=== PATIENT | male | born 1965 | race Caucasian/White ===

== ENCOUNTER 2017-01-26 15:21 | Inpatient (IN) | payer OTHER ==
[~2017-01-26 15:21] MED LIST: HYCET 7.5 MG-3473 M2 PO; NO HOME MEDS
[2017-01-26 16:18] LABS: ALB/GLOB RATIO 0.9 (0.8-2.0); ALBUMIN 2.7 g/dl (3.5-5.0); ALKALINE PHOSPHATASE 67 U/L (33-138); ALT/SGPT 22 U/L (12-78); ANION GAP 13 mmol/L (0-20); AST/SGOT 22 U/L (10-40); BLOOD UREA NITROGEN 16 mg/dl (6-24); CALCIUM 7.9 mg/dl (8.5-10.5); CARBON DIOXIDE-VENOUS 25 mmol/L (22-32); CHLORIDE 98 mmol/l (96-110); CREATININE 0.74 mg/dl (0.60-1.30); GLUCOSE 144 mg/dL (70-110); POTASSIUM 3.7 mmol/L (3.7-5.1); SODIUM 132 mmol/L (135-145); eGFR VALUE FOR BLACK >90 mL/Min
[2017-01-26] MEDS ORDERED: LOVENOX100 MG/1 M SC (16:20)
[2017-01-26 20:42] LABS: INR 1.4 INR (0.9-1.1); PROTHROMBIN TIME 16.4 SECONDS (9.0-13.6)
[2017-01-26 20:56] LABS: PARTIAL THROMBOPLASTIN TIME 67 SECONDS (22-36)
[2017-01-26 21:32] LABS: PROCALCITONIN 10.52 ng/ml (0.05-0.09)
[2017-01-26 22:30] LABS: URINE BILIRUBIN NEGATIVE (NEG); URINE BLOOD MODERATE (NEG); URINE GLUCOSE (UA) NEGATIVE (NEG); URINE KETONE SMALL (NEG); URINE LEUKOCYTE ESTERASE NEGATIVE (NEG); URINE NITRITE NEGATIVE (NEG); URINE PROTEIN MODERATE (NEG); URINE SPECIFIC GRAVITY 1.015 (1.003-1.030)
[2017-01-26 22:34] LABS: URINE APPEARANCE CLOUDY; URINE COLOR YELLOW
[2017-01-26 22:42] LABS: URINE EPITHELIAL CELLS RARE /[HPF] (0-10); URINE RBC RARE /[HPF] (0-5); URINE WBC 0 /[HPF] (0-5)
[2017-01-27 02:30] LABS: ABG CO2 ARTERIAL 21 mmol/L (21-27); ARTERIAL BLD GAS O2 SATURATION 99 % (95-98); ARTERIAL BLOOD GAS PCO2 41 mmHg (32-45); ARTERIAL PO2 166 mmHg (70-100); BICARBONATE 20 mmol/L (21-28); BLOOD GAS BASE EXCESS -6 mM/L (-/+3)
--- NOTE | 2017-01-27 02:52 | NUR ---
AMDISSION ASSESSMENT AND VTE LATE DUE TO WORK FLOW.
[2017-01-27 04:15] LABS: ABG CO2 ARTERIAL 21 mmol/L (21-27); ARTERIAL BLD GAS O2 SATURATION 100 % (95-98); ARTERIAL BLOOD GAS PCO2 21 mmHg (32-45); ARTERIAL PO2 144 mmHg (70-100); BICARBONATE 21 mmol/L (21-28); BLOOD GAS BASE EXCESS -1 mM/L (-/+3)
[2017-01-27 04:17] LABS: PH 7.61 Units (7.35-7.45)
[2017-01-27 04:38] LABS: MCV (MEAN CELL VOLUME) 79.7 fl (82.0-96.0); RED BLOOD COUNT 2.22 mil/cmm (4.40-5.70); RED CELL DISTRIBUTION WIDTH 18.4 % (12.4-16.4)
[2017-01-27 04:40] LABS: MCH (MEAN CORPUSCULAR HGB) 26.1 pg (28.0-32.0); MCHC MEAN CORPUSCULAR HGB CONC 32.8 % (32.0-36.0)
[2017-01-27 04:43] LABS: HGB-HEMOGLOBIN 5.8 gm/dl (13.5-17.0); WHITE BLOOD COUNT 0.1 tho/cmm (4.0-10.0)
[2017-01-27 04:44] LABS: HCT-HEMATOCRIT 17.7 % (36.0-53.5); PLATELET COUNT 13 tho/cmm (150-450)
[2017-01-27 04:48] LABS: ANION GAP 13 mmol/L (0-20); BLOOD UREA NITROGEN 12 mg/dl (6-24); CARBON DIOXIDE-VENOUS 21 mmol/L (22-32); CHLORIDE 106 mmol/l (96-110); CREATININE 0.68 mg/dl (0.60-1.30); GLUCOSE 123 mg/dL (70-110); POTASSIUM 3.4 mmol/L (3.7-5.1); SODIUM 137 mmol/L (135-145); eGFR VALUE FOR BLACK >90 mL/Min
[2017-01-27 05:49] LABS: ABG CO2 ARTERIAL 21 mmol/L (21-27); ARTERIAL BLD GAS O2 SATURATION 99 % (95-98); BICARBONATE 21 mmol/L (21-28); BLOOD GAS BASE EXCESS -2 mM/L (-/+3); PH 7.47 Units (7.35-7.45)
[2017-01-27 05:50] LABS: ARTERIAL BLOOD GAS PCO2 29 mmHg (32-45); ARTERIAL PO2 103 mmHg (70-100)
--- NOTE | 2017-01-27 07:26 | NUR ---
01/27/17 PATIENT CALLED TO USE BATHROOM. HEART RATE HAD BEEN IN 130S TO 140S FOR PAST FEW HOURS, IMS AWARE AND IV BOLUS IN PROGRESS. UPON ENTERING ROOM PATIENT BREATHING LABORED, 02 SATS >90% ON ROOM AIR. PATIENT STARTED TRYING TO SPEAK AND O2 SATS QUICKLY DROPPED IN THE 60S, THAN 40S, THAN 20S. STARTED TO BAG PATIENT, COREMAKING MACHINE OPERATOR CALLED. PATIENT CONTINUED TO HAVE PULSE, BUT WAS MINIMALLY RESPONSIVE. SATS QUICKLY INCREASED TO GRATER THAN 90% WITH BAGGING AND PATIENT REGAINED RESPONSIVENESS. IMS, RT, CCU CHARGE AT BEDSIDE. ORDERS TO TRANSFER TO CCU RECIEVED. PRIOR TO TRANSFER IV SOLUMEDROL GIVEN AND ABGS DRAWN. ATTEMPTED TO CALL EMERGENCY CONTACT BROTHER NAREN, HAD TO LEAVE VOICEMAIL TO CALL HOSPITAL. GEORGE CANO RECIEVING NURSE IS AWARE FAMILY NOT YET NOTIFIED OF TRANSFER.
[2017-01-27 22:11] LABS: LYMPH ABSOLUTE COUNT 0.1 tho/cmm (0.8-4.5); MCV (MEAN CELL VOLUME) 80.4 fl (82.0-96.0); MONOCYTE ABSOLUTE COUNT 0.1 tho/cmm (0.0-1.2); RED BLOOD COUNT 2.96 mil/cmm (4.40-5.70); RED CELL DISTRIBUTION WIDTH 17.4 % (12.4-16.4)
[2017-01-27 22:15] LABS: HCT-HEMATOCRIT 23.8 % (36.0-53.5); MCHC MEAN CORPUSCULAR HGB CONC 33.6 % (32.0-36.0)
[2017-01-27 22:18] LABS: WHITE BLOOD COUNT 0.5 tho/cmm (4.0-10.0)
[2017-01-27 22:20] LABS: PLATELET COUNT 25 tho/cmm (150-450)
[2017-01-27 22:21] LABS: NEUTROPHIL ABSOLUTE COUNT 0.4 tho/cmm (1.6-8.0)
[2017-01-28 05:12] LABS: HGB-HEMOGLOBIN 7.8 gm/dl (13.5-17.0); MCH (MEAN CORPUSCULAR HGB) 26.9 pg (28.0-32.0); MCV (MEAN CELL VOLUME) 80.3 fl (82.0-96.0); RED CELL DISTRIBUTION WIDTH 17.5 % (12.4-16.4)
[2017-01-28 05:18] LABS: HCT-HEMATOCRIT 23.3 % (36.0-53.5); IMMATURE GRANULOCYTES ABSOLUTE 0.07 tho/cmm (0-0.03); IMMATURE GRANULOCYTES PERCENT 8.9 % (0-0.3); LYMPH % 11.4 % (20-45); LYMPH ABSOLUTE COUNT 0.1 tho/cmm (0.8-4.5); MCHC MEAN CORPUSCULAR HGB CONC 33.5 % (32.0-36.0); MONO % 26.6 % (0-12); MONOCYTE ABSOLUTE COUNT 0.2 tho/cmm (0.0-1.2); NEUTROPHILS % 53.1 % (40-80)
[2017-01-28 05:19] LABS: NEUTROPHIL-AUTOMATED 0.4 tho/cmm (1.6-8.0); PLATELET COUNT 28 tho/cmm (150-450); WHITE BLOOD COUNT 0.8 tho/cmm (4.0-10.0)
[2017-01-28 05:20] LABS: NEUTROPHIL ABSOLUTE COUNT 0.4 tho/cmm (1.6-8.0)
[2017-01-28 15:24] LABS: ANION GAP 13 mmol/L (0-20); BLOOD UREA NITROGEN 22 mg/dl (6-24); CALCIUM 7.7 mg/dl (8.5-10.5); CARBON DIOXIDE-VENOUS 24 mmol/L (22-32); CHLORIDE 109 mmol/l (96-110); CREATININE 0.67 mg/dl (0.60-1.30); GLUCOSE 134 mg/dL (70-110); POTASSIUM 3.3 mmol/L (3.7-5.1); SODIUM 143 mmol/L (135-145); eGFR VALUE FOR BLACK >90 mL/Min
[2017-01-29 05:19] LABS: HCT-HEMATOCRIT 25.3 % (36.0-53.5); HGB-HEMOGLOBIN 8.5 gm/dl (13.5-17.0); MCH (MEAN CORPUSCULAR HGB) 27.1 pg (28.0-32.0); MCHC MEAN CORPUSCULAR HGB CONC 33.6 % (32.0-36.0); MCV (MEAN CELL VOLUME) 80.6 fl (82.0-96.0); NEUTROPHIL-AUTOMATED 3.9 tho/cmm (1.6-8.0); RED BLOOD COUNT 3.14 mil/cmm (4.40-5.70)
[2017-01-29 05:28] LABS: BASO % 0.2 % (0-2); IMMATURE GRANULOCYTES ABSOLUTE 0.31 tho/cmm (0-0.03); IMMATURE GRANULOCYTES PERCENT 6.9 % (0-0.3); LYMPH % 2.7 % (20-45); LYMPH ABSOLUTE COUNT 0.1 tho/cmm (0.8-4.5); MONO % 2.7 % (0-12); MONOCYTE ABSOLUTE COUNT 0.1 tho/cmm (0.0-1.2); NEUTROPHIL ABSOLUTE COUNT 3.9 tho/cmm (1.6-8.0); NEUTROPHILS % 87.5 % (40-80); WHITE BLOOD COUNT 4.5 tho/cmm (4.0-10.0)
[2017-01-29 05:31] LABS: PLATELET COUNT 39 tho/cmm (150-450)
[2017-01-29 05:44] LABS: ANION GAP 11 mmol/L (0-20); BLOOD UREA NITROGEN 19 mg/dl (6-24); CALCIUM 7.7 mg/dl (8.5-10.5); CARBON DIOXIDE-VENOUS 23 mmol/L (22-32); CHLORIDE 111 mmol/l (96-110); CREATININE 0.53 mg/dl (0.60-1.30); GLUCOSE 120 mg/dL (70-110); SODIUM 141 mmol/L (135-145); eGFR VALUE FOR BLACK >90 mL/Min
[2017-01-29 07:22] LABS: WBC MORPHOLOGY DOHLE BODIES
[2017-01-30 05:54] LABS: HCT-HEMATOCRIT 25.7 % (36.0-53.5); HGB-HEMOGLOBIN 8.4 gm/dl (13.5-17.0); MCH (MEAN CORPUSCULAR HGB) 26.9 pg (28.0-32.0); MCHC MEAN CORPUSCULAR HGB CONC 32.7 % (32.0-36.0); MCV (MEAN CELL VOLUME) 82.4 fl (82.0-96.0); NEUTROPHIL-AUTOMATED 7.7 tho/cmm (1.6-8.0); PLATELET COUNT 56 tho/cmm (150-450); RED BLOOD COUNT 3.12 mil/cmm (4.40-5.70); RED CELL DISTRIBUTION WIDTH 18.8 % (12.4-16.4)
[2017-01-30 06:01] LABS: WHITE BLOOD COUNT 9.2 tho/cmm (4.0-10.0)
[2017-01-30 06:08] LABS: ANION GAP 12 mmol/L (0-20); BLOOD UREA NITROGEN 11 mg/dl (6-24); CALCIUM 7.6 mg/dl (8.5-10.5); CARBON DIOXIDE-VENOUS 27 mmol/L (22-32); CHLORIDE 108 mmol/l (96-110); GLUCOSE 86 mg/dL (70-110); SODIUM 144 mmol/L (135-145); eGFR VALUE FOR BLACK >90 mL/Min
[2017-01-30 06:36] LABS: POTASSIUM 3.1 mmol/L (3.7-5.1)
[2017-01-30 09:38] LABS: BAND % 33 % (0-20)
[2017-01-31 04:34] LABS: HCT-HEMATOCRIT 26.9 % (36.0-53.5); HGB-HEMOGLOBIN 8.7 gm/dl (13.5-17.0); MCH (MEAN CORPUSCULAR HGB) 26.8 pg (28.0-32.0); MCHC MEAN CORPUSCULAR HGB CONC 32.3 % (32.0-36.0); MCV (MEAN CELL VOLUME) 82.8 fl (82.0-96.0); MEAN PLATELET VOLUME 10.7 cmc (9.4-12.4); NEUTROPHIL-AUTOMATED 10.2 tho/cmm (1.6-8.0); PLATELET COUNT 75 tho/cmm (150-450); RED BLOOD COUNT 3.25 mil/cmm (4.40-5.70); RED CELL DISTRIBUTION WIDTH 19.2 % (12.4-16.4); WHITE BLOOD COUNT 12.6 tho/cmm (4.0-10.0)
[2017-01-31 04:47] LABS: ANION GAP 11 mmol/L (0-20); BLOOD UREA NITROGEN 9 mg/dl (6-24); CALCIUM 7.7 mg/dl (8.5-10.5); CARBON DIOXIDE-VENOUS 26 mmol/L (22-32); CHLORIDE 109 mmol/l (96-110); CREATININE 0.46 mg/dl (0.60-1.30); GLUCOSE 96 mg/dL (70-110); POTASSIUM 3.3 mmol/L (3.7-5.1); SODIUM 143 mmol/L (135-145); eGFR VALUE FOR BLACK >90 mL/Min
[2017-01-31 05:53] LABS: BAND % 2 % (0-20); BAND ABSOLUTE COUNT 0.3 tho/cmm (0-2.0)
[2017-02-01 04:44] LABS: BASO % 0.1 % (0-2); HCT-HEMATOCRIT 27.2 % (36.0-53.5); HGB-HEMOGLOBIN 8.7 gm/dl (13.5-17.0); IMMATURE GRANULOCYTES ABSOLUTE 1.47 tho/cmm (0-0.03); IMMATURE GRANULOCYTES PERCENT 9.9 % (0-0.3); LYMPH % 3.1 % (20-45); LYMPH ABSOLUTE COUNT 0.5 tho/cmm (0.8-4.5); MCH (MEAN CORPUSCULAR HGB) 26.8 pg (28.0-32.0); MCV (MEAN CELL VOLUME) 83.7 fl (82.0-96.0); MEAN PLATELET VOLUME 10.4 cmc (9.4-12.4); MONO % 8.5 % (0-12); MONOCYTE ABSOLUTE COUNT 1.3 tho/cmm (0.0-1.2); NEUTROPHIL ABSOLUTE COUNT 11.6 tho/cmm (1.6-8.0); NEUTROPHIL-AUTOMATED 11.6 tho/cmm (1.6-8.0); NEUTROPHILS % 78.4 % (40-80); PLATELET COUNT 117 tho/cmm (150-450); RED BLOOD COUNT 3.25 mil/cmm (4.40-5.70); RED CELL DISTRIBUTION WIDTH 19.7 % (12.4-16.4); WHITE BLOOD COUNT 14.9 tho/cmm (4.0-10.0)
[2017-02-01] MEDS ORDERED: POTASSIUM CHLO20 ME4 PO (12:14)
[2017-02-01] MEDS ORDERED: PREDNISONE10 M1 PO (12:15)
== END 2017-02-01 14:45 | disposition home health service (06) | DRG 314 ==
LOC: EDMED 15:21 → EMR2 18:47 → PCUA 20:55 → CCU 01-27 02:20 → 5WE 01-28 19:29
PROVIDERS: Emergency Medicine; Family Medicine; Internal Medicine Medical Oncology; Registered Nurse; ADMIT Hospitalist
PROC: 30243N1 Transfusion of Nonautologous Red Blood Cells into Central Vein, Percutaneous Approach (ICD-10-PCS; principal; 2017-01-27)
PROC: 5A09357 Assistance with Respiratory Ventilation, Less than 24 Consecutive Hours, Continuous Positive Airway Pressure (ICD-10-PCS; 2017-01-27)
DX: T80.211A Bloodstream infection due to central venous catheter, initial encounter (principal); A41.01 Sepsis due to Methicillin susceptible Staphylococcus aureus; I26.90 Septic pulmonary embolism without acute cor pulmonale; J96.01 Acute respiratory failure with hypoxia; D61.810 Antineoplastic chemotherapy induced pancytopenia; J18.9 Pneumonia, unspecified organism; D70.9 Neutropenia, unspecified; T82.9XXA Unspecified complication of cardiac and vascular prosthetic device, implant and graft, initial encounter; R65.20 Severe sepsis without septic shock; E44.1 Mild protein-calorie malnutrition; T82.868A Thrombosis due to vascular prosthetic devices, implants and grafts, initial encounter; K92.1 Melena; T17.990A Other foreign object in respiratory tract, part unspecified in causing asphyxiation, initial encounter; R50.81 Fever presenting with conditions classified elsewhere; C11.9 Malignant neoplasm of nasopharynx, unspecified; E87.6 Hypokalemia; Z68.24 Body mass index [BMI] 24.0-24.9, adult; Z79.01 Long term (current) use of anticoagulants; Z91.19 Patient's noncompliance with other medical treatment and regimen; R19.7 Diarrhea, unspecified
CPT/HCPCS: J0131; J0692; J1447; J1650; J1940; J1956; J2920; J2930; J3370; J3480; J7030; P9016; P9031; P9033; Q9967

== ENCOUNTER 2017-03-20 09:55 | Inpatient (IN) | payer OTHER ==
[~2017-03-20 09:55] MED LIST changes: +LOVENOX100 MG/1 M SC; +POTASSIUM CHLO20 ME4 PO; +PREDNISONE10 M1 PO
[2017-03-20 11:02] LABS: BASO % 0.7 % (0-2); BASO ABSOLUTE COUNT 0.1 tho/cmm (0.0-0.2); EOS % 0.2 % (0-7); HCT-HEMATOCRIT 27.9 % (36.0-53.5); HGB-HEMOGLOBIN 8.8 gm/dl (13.5-17.0); IMMATURE GRANULOCYTES PERCENT 3.7 % (0-0.3); LYMPH % 1.5 % (20-45); LYMPH ABSOLUTE COUNT 0.3 tho/cmm (0.8-4.5); MCHC MEAN CORPUSCULAR HGB CONC 31.5 % (32.0-36.0); MCV (MEAN CELL VOLUME) 88.9 fl (82.0-96.0); MEAN PLATELET VOLUME 8.5 cmc (9.4-12.4); MONO % 0.6 % (0-12); MONOCYTE ABSOLUTE COUNT 0.1 tho/cmm (0.0-1.2); NEUTROPHIL ABSOLUTE COUNT 15.2 tho/cmm (1.6-8.0); NEUTROPHIL-AUTOMATED 15.2 tho/cmm (1.6-8.0); NEUTROPHILS % 93.3 % (40-80); RED BLOOD COUNT 3.14 mil/cmm (4.40-5.70); RED CELL DISTRIBUTION WIDTH 19.1 % (12.4-16.4); WHITE BLOOD COUNT 16.3 tho/cmm (4.0-10.0)
[2017-03-20 11:22] LABS: ALB/GLOB RATIO 0.8 (0.8-2.0); ALBUMIN 3.1 g/dl (3.5-5.0); ALKALINE PHOSPHATASE 145 U/L (33-138); ALT/SGPT 25 U/L (12-78); ANION GAP 13 mmol/L (0-20); AST/SGOT 17 U/L (10-40); BILIRUBIN,TOTAL 0.6 mg/dl (0.0-1.5); BLOOD UREA NITROGEN 19 mg/dl (6-24); C-REACTIVE PROTEIN 2.1 mg/dl (0-0.9); CALCIUM 9.4 mg/dl (8.5-10.5); CARBON DIOXIDE-VENOUS 23 mmol/L (22-32); CHLORIDE 108 mmol/l (96-110); GLUCOSE 146 mg/dL (70-110); POTASSIUM 4.1 mmol/L (3.7-5.1); SODIUM 140 mmol/L (135-145); eGFR VALUE FOR BLACK >90 mL/Min
[2017-03-20 11:41] LABS: ESR-ERYTHROCYTE SED RATE 59 mm/hr (0-20)
[2017-03-20 11:57] LABS: PLATELET COUNT 340 tho/cmm (150-450)
[2017-03-20] MEDS ORDERED: DOXORUBICIN2 MG/1 ML IV (12:28)
[2017-03-20] MEDS ORDERED: CYCLOPHOSPHAMI500 MG IV (12:31)
[2017-03-20] MEDS ORDERED: VINCRISTINE IV (12:34)
[2017-03-20] MEDS ORDERED: SODIUM CHLORIDE 0.9% IV (12:40)
[2017-03-20] MEDS ORDERED: POTASSIUM20 MEQ/13 IV (12:42)
[2017-03-20] MEDS ORDERED: MAGNESIUM4 MEQ/1 M1 IV (12:45)
[2017-03-20] MEDS ORDERED: NEULASTA6 MG/0.61 IV (12:52)
[2017-03-20] MEDS ORDERED: ALOXI0.25 MG/5 IV (12:53)
[2017-03-20] MEDS ORDERED: DEXAMETHAS10 MG/1 M1 IV (12:54)
[2017-03-20] MEDS ORDERED: EMEND150 MG IV (12:55)
[2017-03-20] MEDS ORDERED: [UNRECOGNIZED DRUG - OTHER] SC (12:58)
[2017-03-20] MEDS ORDERED: BENADRYL25 M3 IV (12:59)
[2017-03-20] MEDS ORDERED: SOLU-CORTE100 MG/24 IV (13:01)
[2017-03-20] MEDS ORDERED: SOLU-MEDRO125 MG/23 IV (13:02)
[2017-03-20] MEDS ORDERED: [UNRECOGNIZED DRUG - OTHER] IV (14:50)
[2017-03-20] MEDS ORDERED: NAFCILLIN SODIUM IV (15:23)
[2017-03-20 16:12] LABS: PROCALCITONIN 0.36 ng/ml (0.05-0.09)
[2017-03-20 16:50] LABS: URINE BILIRUBIN NEGATIVE (NEG); URINE BLOOD SMALL (NEG); URINE GLUCOSE (UA) NEGATIVE (NEG); URINE KETONE NEGATIVE (NEG); URINE LEUKOCYTE ESTERASE NEGATIVE (NEG); URINE NITRITE NEGATIVE (NEG); URINE PROTEIN NEGATIVE (NEG); URINE SPECIFIC GRAVITY 1.015 (1.003-1.030)
[2017-03-20 16:52] LABS: URINE APPEARANCE CLOUDY; URINE COLOR YELLOW
[2017-03-20 16:56] LABS: URINE AMORPHOUS 2+; URINE EPITHELIAL CELLS RARE /[HPF] (0-10); URINE RBC RARE /[HPF] (0-5); URINE WBC RARE /[HPF] (0-5)
[2017-03-21 04:58] LABS: BASO % 1.8 % (0-2); BASO ABSOLUTE COUNT 0.2 tho/cmm (0.0-0.2); EOS % 0.3 % (0-7); HCT-HEMATOCRIT 27.8 % (36.0-53.5); HGB-HEMOGLOBIN 8.7 gm/dl (13.5-17.0); IMMATURE GRANULOCYTES ABSOLUTE 0.09 tho/cmm (0-0.03); LYMPH % 3.4 % (20-45); LYMPH ABSOLUTE COUNT 0.3 tho/cmm (0.8-4.5); MCH (MEAN CORPUSCULAR HGB) 27.7 pg (28.0-32.0); MCHC MEAN CORPUSCULAR HGB CONC 31.3 % (32.0-36.0); MCV (MEAN CELL VOLUME) 88.5 fl (82.0-96.0); MEAN PLATELET VOLUME 8.1 cmc (9.4-12.4); MONO % 1.3 % (0-12); MONOCYTE ABSOLUTE COUNT 0.1 tho/cmm (0.0-1.2); NEUTROPHIL ABSOLUTE COUNT 8.4 tho/cmm (1.6-8.0); NEUTROPHIL-AUTOMATED 8.4 tho/cmm (1.6-8.0); NEUTROPHILS % 92.2 % (40-80); PLATELET COUNT 276 tho/cmm (150-450); RED BLOOD COUNT 3.14 mil/cmm (4.40-5.70); RED CELL DISTRIBUTION WIDTH 18.7 % (12.4-16.4); WHITE BLOOD COUNT 9.1 tho/cmm (4.0-10.0)
[2017-03-21 05:24] LABS: ANION GAP 12 mmol/L (0-20); BLOOD UREA NITROGEN 20 mg/dl (6-24); C-REACTIVE PROTEIN 1.6 mg/dl (0-0.9); CALCIUM 9.3 mg/dl (8.5-10.5); CARBON DIOXIDE-VENOUS 26 mmol/L (22-32); CHLORIDE 106 mmol/l (96-110); GLUCOSE 98 mg/dL (70-110); POTASSIUM 4.6 mmol/L (3.7-5.1); SODIUM 139 mmol/L (135-145); eGFR VALUE FOR BLACK >90 mL/Min
[2017-03-22 04:25] LABS: HCT-HEMATOCRIT 27.8 % (36.0-53.5); HGB-HEMOGLOBIN 8.8 gm/dl (13.5-17.0); MCH (MEAN CORPUSCULAR HGB) 27.7 pg (28.0-32.0); MCHC MEAN CORPUSCULAR HGB CONC 31.7 % (32.0-36.0); MCV (MEAN CELL VOLUME) 87.4 fl (82.0-96.0); MEAN PLATELET VOLUME 8.2 cmc (9.4-12.4); NEUTROPHIL-AUTOMATED 4.1 tho/cmm (1.6-8.0); PLATELET COUNT 275 tho/cmm (150-450); RED BLOOD COUNT 3.18 mil/cmm (4.40-5.70); RED CELL DISTRIBUTION WIDTH 18.2 % (12.4-16.4); WHITE BLOOD COUNT 4.8 tho/cmm (4.0-10.0)
[2017-03-22 04:39] LABS: ANION GAP 9 mmol/L (0-20); BLOOD UREA NITROGEN 17 mg/dl (6-24); CALCIUM 9.4 mg/dl (8.5-10.5); CARBON DIOXIDE-VENOUS 28 mmol/L (22-32); CHLORIDE 104 mmol/l (96-110); CREATININE 0.69 mg/dl (0.60-1.30); GLUCOSE 103 mg/dL (70-110); POTASSIUM 4.3 mmol/L (3.7-5.1); SODIUM 137 mmol/L (135-145); eGFR VALUE FOR BLACK >90 mL/Min
[2017-03-22 06:35] LABS: BAND % 25 % (0-20); BAND ABSOLUTE COUNT 1.2 tho/cmm (0-2.0); BASOPHIL % 2 % (0-2); BASOPHIL ABSOLUTE COUNT 0.1 tho/cmm (0.0-0.2); EOSINOPHIL % 1 % (0-7)
[2017-03-23 05:31] LABS: EOS % 0.3 % (0-7); HCT-HEMATOCRIT 26.5 % (36.0-53.5); HGB-HEMOGLOBIN 8.5 gm/dl (13.5-17.0); MCH (MEAN CORPUSCULAR HGB) 27.6 pg (28.0-32.0); MCHC MEAN CORPUSCULAR HGB CONC 32.1 % (32.0-36.0); MEAN PLATELET VOLUME 8.4 cmc (9.4-12.4); MONO % 20.3 % (0-12); NEUTROPHIL-AUTOMATED 2.1 tho/cmm (1.6-8.0); NEUTROPHILS % 70.1 % (40-80); PLATELET COUNT 214 tho/cmm (150-450); RED BLOOD COUNT 3.08 mil/cmm (4.40-5.70); RED CELL DISTRIBUTION WIDTH 18.2 % (12.4-16.4)
[2017-03-23 05:49] LABS: BASO % 3.3 % (0-2); BASO ABSOLUTE COUNT 0.1 tho/cmm (0.0-0.2); IMMATURE GRANULOCYTES ABSOLUTE 0.03 tho/cmm (0-0.03); LYMPH ABSOLUTE COUNT 0.2 tho/cmm (0.8-4.5); MONOCYTE ABSOLUTE COUNT 0.6 tho/cmm (0.0-1.2); NEUTROPHIL ABSOLUTE COUNT 2.1 tho/cmm (1.6-8.0)
[2017-03-24 06:48] LABS: HCT-HEMATOCRIT 26.7 % (36.0-53.5); HGB-HEMOGLOBIN 8.8 gm/dl (13.5-17.0); MCH (MEAN CORPUSCULAR HGB) 28.2 pg (28.0-32.0); MCV (MEAN CELL VOLUME) 85.6 fl (82.0-96.0); MEAN PLATELET VOLUME 8.9 cmc (9.4-12.4); PLATELET COUNT 203 tho/cmm (150-450); RED BLOOD COUNT 3.12 mil/cmm (4.40-5.70); RED CELL DISTRIBUTION WIDTH 18.4 % (12.4-16.4); WHITE BLOOD COUNT 3.2 tho/cmm (4.0-10.0)
[2017-03-24 07:46] LABS: BAND % 37 % (0-20); BAND ABSOLUTE COUNT 1.2 tho/cmm (0-2.0); BASOPHIL % 1 % (0-2)
[2017-03-25 06:53] LABS: HCT-HEMATOCRIT 25.5 % (36.0-53.5); HGB-HEMOGLOBIN 8.4 gm/dl (13.5-17.0); MCH (MEAN CORPUSCULAR HGB) 28.1 pg (28.0-32.0); MCHC MEAN CORPUSCULAR HGB CONC 32.9 % (32.0-36.0); MCV (MEAN CELL VOLUME) 85.3 fl (82.0-96.0); NEUTROPHIL-AUTOMATED 4.3 tho/cmm (1.6-8.0); PLATELET COUNT 198 tho/cmm (150-450); RED BLOOD COUNT 2.99 mil/cmm (4.40-5.70); RED CELL DISTRIBUTION WIDTH 18.8 % (12.4-16.4)
[2017-03-25 06:56] LABS: WHITE BLOOD COUNT 6.2 tho/cmm (4.0-10.0)
[2017-03-25 07:09] LABS: ANION GAP 11 mmol/L (0-20); BLOOD UREA NITROGEN 12 mg/dl (6-24); CALCIUM 8.8 mg/dl (8.5-10.5); CARBON DIOXIDE-VENOUS 26 mmol/L (22-32); CHLORIDE 99 mmol/l (96-110); CREATININE 0.72 mg/dl (0.60-1.30); GLUCOSE 96 mg/dL (70-110); POTASSIUM 3.4 mmol/L (3.7-5.1); SODIUM 133 mmol/L (135-145); eGFR VALUE FOR BLACK >90 mL/Min
[2017-03-25 08:46] LABS: BAND % 37 % (0-20); BAND ABSOLUTE COUNT 2.3 tho/cmm (0-2.0); BASOPHIL % 1 % (0-2); BASOPHIL ABSOLUTE COUNT 0.1 tho/cmm (0.0-0.2); EOSINOPHIL % 1 % (0-7)
[2017-03-25 08:48] LABS: WBC MORPHOLOGY DOHLE BODIES
[2017-03-25 20:34] LABS: URINE BILIRUBIN NEGATIVE (NEG); URINE BLOOD MODERATE (NEG); URINE GLUCOSE (UA) NEGATIVE (NEG); URINE KETONE NEGATIVE (NEG); URINE LEUKOCYTE ESTERASE NEGATIVE (NEG); URINE NITRITE NEGATIVE (NEG); URINE PROTEIN SMALL (NEG)
[2017-03-25 20:35] LABS: URINE APPEARANCE CLEAR; URINE COLOR YELLOW
[2017-03-25 20:45] LABS: URINE BACTERIA 1+; URINE EPITHELIAL CELLS 0 /[HPF] (0-10); URINE WBC 0 /[HPF] (0-5)
[2017-03-26 05:55] LABS: HGB-HEMOGLOBIN 8.8 gm/dl (13.5-17.0); MCH (MEAN CORPUSCULAR HGB) 28.1 pg (28.0-32.0); MCHC MEAN CORPUSCULAR HGB CONC 32.6 % (32.0-36.0); MCV (MEAN CELL VOLUME) 86.3 fl (82.0-96.0); MEAN PLATELET VOLUME 8.7 cmc (9.4-12.4); NEUTROPHIL-AUTOMATED 7.3 tho/cmm (1.6-8.0); PLATELET COUNT 186 tho/cmm (150-450); RED BLOOD COUNT 3.13 mil/cmm (4.40-5.70); RED CELL DISTRIBUTION WIDTH 18.8 % (12.4-16.4)
[2017-03-26 06:09] LABS: ANION GAP 9 mmol/L (0-20); BLOOD UREA NITROGEN 11 mg/dl (6-24); C-REACTIVE PROTEIN 9.7 mg/dl (0-0.9); CARBON DIOXIDE-VENOUS 29 mmol/L (22-32); CHLORIDE 103 mmol/l (96-110); CREATININE 0.77 mg/dl (0.60-1.30); GLUCOSE 110 mg/dL (70-110); POTASSIUM 3.7 mmol/L (3.7-5.1); SODIUM 137 mmol/L (135-145); eGFR VALUE FOR BLACK >90 mL/Min
[2017-03-26 07:08] LABS: BAND % 42 % (0-20); BAND ABSOLUTE COUNT 4.2 tho/cmm (0-2.0); EOSINOPHIL % 1 % (0-7)
[2017-03-27 06:55] LABS: HCT-HEMATOCRIT 27.2 % (36.0-53.5); HGB-HEMOGLOBIN 8.8 gm/dl (13.5-17.0); MCH (MEAN CORPUSCULAR HGB) 27.8 pg (28.0-32.0); MCHC MEAN CORPUSCULAR HGB CONC 32.4 % (32.0-36.0); MCV (MEAN CELL VOLUME) 85.8 fl (82.0-96.0); MEAN PLATELET VOLUME 8.7 cmc (9.4-12.4); NEUTROPHIL-AUTOMATED 9.9 tho/cmm (1.6-8.0); PLATELET COUNT 224 tho/cmm (150-450); RED BLOOD COUNT 3.17 mil/cmm (4.40-5.70); RED CELL DISTRIBUTION WIDTH 18.4 % (12.4-16.4); WHITE BLOOD COUNT 13.4 tho/cmm (4.0-10.0)
[2017-03-27 09:44] LABS: BAND % 17 % (0-20); BAND ABSOLUTE COUNT 2.3 tho/cmm (0-2.0)
[2017-03-27] MEDS ORDERED: TYLENOL325 M2 PO (11:53)
[2017-03-27] MEDS ORDERED: AQUAPHOR99 GM TOP (11:59)
== END 2017-03-27 17:08 | DRG 866 ==
LOC: EDMED 09:55 → EMR2 16:23 → 5WF 16:58
PROVIDERS: Emergency Medicine; Internal Medicine; Internal Medicine Medical Oncology; Nurse Practitioner; ADMIT Family Medicine
DX: B02.8 Zoster with other complications (principal); D84.9 Immunodeficiency, unspecified; C11.9 Malignant neoplasm of nasopharynx, unspecified; I82.621 Acute embolism and thrombosis of deep veins of right upper extremity; G62.9 Polyneuropathy, unspecified; D64.9 Anemia, unspecified; E87.6 Hypokalemia; R73.9 Hyperglycemia, unspecified; Z92.21 Personal history of antineoplastic chemotherapy; Z86.711 Personal history of pulmonary embolism; Z86.14 Personal history of Methicillin resistant Staphylococcus aureus infection
CPT/HCPCS: G8987-GO-CK; G8988-GO-CH; J0133; J1170; J1650; J2270; J2405; J7050